=== PATIENT | male | born 1965 | race Caucasian/White ===

== ENCOUNTER 2020-01-16 16:04 | Emergency (ER) | payer SELFPAY ==
[~2020-01-16] VITALS: Ht 190.5 cm; Wt 99.8 kg
--- NOTE | 2020-01-16 16:20 | NUR ---
PT CAME TO ER WITH LACERATION,RIGHT THUMB, SUSTAINED AT WOR WHILE WORKING WITH TABLE SAW. WOUND CARE PROVIDED. PRESSURE APPLIED. AWAITING FOR MD NORIEGA
[2020-01-16] MEDS ORDERED: LIDOCAINE HCL/MPF 1% 30 ML VIAL IJ ONE (16:23)
[2020-01-16] MEDS ORDERED: LIDOCAINE 2% 20 ML MDV TP ONE (16:30)
[2020-01-16] MEDS ORDERED: IBUPROFEN 600 MG TABLET PO ONE (16:30)
[2020-01-16] MEDS ORDERED: IBUPROFEN 600 MG TABLET ONE (16:30)
[2020-01-16] MEDS ORDERED: TDAP [DIPH/PERTUSSIS/TET] 0.5 ML VIAL IM ONE ×2 (16:30)
--- NOTE | 2020-01-16 16:35 | NUR ---
ALBERTINA EUCEDA AT BEDSIDE FOR SUTURING
[2020-01-16 17:29] VITALS: BP 127/68
== END 2020-01-16 17:29 | disposition home or self-care (01) ==
LOC: ER 16:10
DX: S61.011A Laceration without foreign body of right thumb without damage to nail, initial encounter (principal); X58.XXXA Exposure to other specified factors, initial encounter; Y93.89 Activity, other specified; Y92.89 Other specified places as the place of occurrence of the external cause; Y99.0 Civilian activity done for income or pay
CPT/HCPCS: 12002; 90471; 90715; 99283; J3490